=== PATIENT | male | born 1970 | race Caucasian/White ===

== ENCOUNTER → 2016-11-03 | Outpatient (CLI) | payer MEDICAID ==
[~2016-11-03] MED LIST: ALBUTEROL0.83 MG/ML IH; LEVAQUIN 5500 MG/TA1 PO; NORCO 325 MG-51 TAB PO; PREDNISONE20 MG PO; PROAIR HFA0.09 MG/AC IH; RT ADVAIR 228 DISKUS; RT ADVAIR 528 DISKUS IH
== END ==
LOC: COL.VAS 09:57
DX: G47.34 Idiopathic sleep related nonobstructive alveolar hypoventilation (principal); J44.9 Chronic obstructive pulmonary disease, unspecified

== ENCOUNTER 2017-01-18 01:25 | Emergency (ER) | payer MEDICAID ==
[~2017-01-18] VITALS: Ht 177.8 cm; Wt 170.5 kg
[~2017-01-18 01:25] MED LIST changes: -ALBUTEROL0.83 MG/ML IH; -LEVAQUIN 5500 MG/TA1 PO; -PROAIR HFA0.09 MG/AC IH; -RT ADVAIR 528 DISKUS IH
[2017-01-18 01:32] VITALS: TEMP 98.9
[2017-01-18 01:39] LABS: ALLEN TEST YES; ALLENS TEST RESULT PASS; ARTERIAL BLD GAS O2 SATURATION 99.5 % (92-100); ARTERIAL BLOOD GAS BASE EXCESS -0.7 (-2-2); ARTERIAL BLOOD GAS HCO3 27.2 meq/L (22-26); ARTERIAL BLOOD GAS PHT 7.29 C (7.35-7.45); ARTERIAL BLOOD GAS PO2 462.5 mmHg (80-100); ARTERIAL BLOOD GAS PO2T 462.5 (80-100); ARTERIAL BLOOD GAS pH 7.29 (7.35-7.45); ATS? YES; OXYHEMOGLOBIN 93.7 %
[2017-01-18 02:00] LABS: ADJUSTED CALCIUM 8.8 mg/dL (8.4-10.2); ALANINE AMINOTRANSFERASE 69 U/L (21-72); ALBUMIN 4.4 gm/dL (3.5-5.0); ALKALINE PHOSPHATASE 100 U/L (50-136); ANION GAP 13 mmol/L (7-16); BILIRUBIN,TOTAL 0.8 mg/dL (0.0-1.0); BLOOD UREA NITROGEN 6 mg/dL (9-20); CALCIUM 9.1 mg/dL (8.4-10.2); CARBON DIOXIDE 26 mmol/L (22-30); CHLORIDE 100 mmol/L (98-107); GLUCOSE 124 mg/dL (74-106); POTASSIUM 4.7 mmol/L (3.4-5.0); SODIUM 140 mmol/L (137-145)
[2017-01-18 02:01] LABS: BASO # 0.1 (0.0-0.2); BASO % 0.5 % (0.0-2.0); EOS # 0.2 (0.0-0.7); EOS % 2.2 % (0-4.0); GRAN # 7.3 (1.4-6.5); GRAN % 65.7 % (42.2-75.2); HEMATOCRIT 45.9 % (42.0-52.0); HEMOGLOBIN 15.6 g/dl (13.5-18.0); LYMPH # 2.6 (1.2-3.4); LYMPH % 23.5 % (20.0-51.0); MEAN CELL VOLUME 94 fl (80.0-100.0); MEAN CORPUSCULAR HEMOGLOBIN 32 pg (27.0-31.0); MEAN CORPUSCULAR HGB CONC 34 g/dl (33.0-37.0); MEAN PLATELET VOLUME 10.3 fl (7.4-10.4); MONO # 0.8 (0.1-0.6); MONO % 7.4 % (1.7-9.3); PLATELET COUNT 258 K/mm3 (130-400); RED BLOOD COUNT 4.91 M/mm3 (4.20-5.60); REDCELL DISTRIBUTION WIDTH-CV 12.6 % (11.5-14.5)
[2017-01-18 02:02] LABS: PROTHROMBIN TIME 11.5 SECONDS (9.7-12.8)
[2017-01-18 02:07] LABS: B-TYPE NATRIURETIC PEPTIDE 74 pg/mL (0-125)
[2017-01-18] MEDS ORDERED: RT ADVAIR 528 DISKUS IH (02:46)
[2017-01-18] MEDS ORDERED: PROAIR HFA0.09 MG/AC IH (02:49)
[2017-01-18 03:01] LABS: TROPONIN-I < 0.012 ng/mL (0.000-0.034)
[2017-01-18] MEDS ORDERED: PREDNISONE20 MG PO (04:41)
[2017-01-18] MEDS ORDERED: ALBUTEROL0.83 MG/ML IH (04:43)
[2017-01-18 04:56] VITALS: BP 154/100; PULSE 100
== END 2017-01-18 05:19 | disposition home or self-care (01) ==
LOC: COL.ER 01:25
PROVIDERS: Emergency Medicine
DX: J96.00 Acute respiratory failure, unspecified whether with hypoxia or hypercapnia (principal); J44.1 Chronic obstructive pulmonary disease with (acute) exacerbation; J45.901 Unspecified asthma with (acute) exacerbation; Z99.81 Dependence on supplemental oxygen
CPT/HCPCS: J7512

== ENCOUNTER 2017-01-19 23:38 | Emergency (ER) | payer MEDICAID ==
[~2017-01-19] VITALS: Ht 195.6 cm; Wt 170.5 kg
[~2017-01-19 23:38] MED LIST changes: +ALBUTEROL0.83 MG/ML IH; +PROAIR HFA0.09 MG/AC IH; +RT ADVAIR 528 DISKUS IH
[2017-01-19 23:42] VITALS: BP 146/73; TEMP 97.7
[2017-01-20 00:31] LABS: ALLEN TEST YES; ALLENS TEST RESULT PASS; ARTERIAL BLD GAS O2 SATURATION 93.8 % (92-100); ARTERIAL BLD GAS TCO2 CT 29.2; ARTERIAL BLOOD GAS BASE EXCESS 2.4 (-2-2); ARTERIAL BLOOD GAS HCO3 27.8 meq/L (22-26); ARTERIAL BLOOD GAS PO2 66.3 mmHg (80-100); ARTERIAL BLOOD GAS PO2T 66.3 (80-100); ATS? YES; OXYHEMOGLOBIN 87.3 %
[2017-01-20 00:47] LABS: BASO % 0.2 % (0.0-2.0); EOS # 0.1 (0.0-0.7); EOS % 0.7 % (0-4.0); GRAN # 5.7 (1.4-6.5); GRAN % 61.9 % (42.2-75.2); HEMATOCRIT 44.2 % (42.0-52.0); HEMOGLOBIN 14.6 g/dl (13.5-18.0); LYMPH # 2.5 (1.2-3.4); LYMPH % 26.8 % (20.0-51.0); MEAN CELL VOLUME 93 fl (80.0-100.0); MEAN CORPUSCULAR HEMOGLOBIN 31 pg (27.0-31.0); MEAN CORPUSCULAR HGB CONC 33 g/dl (33.0-37.0); MEAN PLATELET VOLUME 10.6 fl (7.4-10.4); MONO # 0.9 (0.1-0.6); MONO % 9.4 % (1.7-9.3); PLATELET COUNT 263 K/mm3 (130-400); RED BLOOD COUNT 4.74 M/mm3 (4.20-5.60); REDCELL DISTRIBUTION WIDTH-CV 12.7 % (11.5-14.5); WHITE BLOOD COUNT 9.2 K/mm3 (4.8-10.8)
[2017-01-20 01:21] LABS: ADJUSTED CALCIUM 8.8 mg/dL (8.4-10.2); ALANINE AMINOTRANSFERASE 61 U/L (21-72); ALBUMIN 4.1 gm/dL (3.5-5.0); ALKALINE PHOSPHATASE 82 U/L (50-136); ANION GAP 12 mmol/L (7-16); BILIRUBIN,TOTAL 0.8 mg/dL (0.0-1.0); BLOOD UREA NITROGEN 16 mg/dL (9-20); C-REACTIVE PROTEIN 0.9 mg/dL (0.0-0.9); CALCIUM 8.9 mg/dL (8.4-10.2); CARBON DIOXIDE 26 mmol/L (22-30); CHLORIDE 103 mmol/L (98-107); CREATININE, serum 0.68 mg/dL (0.66-1.25); GLUCOSE 115 mg/dL (74-106); POTASSIUM 3.9 mmol/L (3.4-5.0); SODIUM 141 mmol/L (137-145); TOTAL PROTEIN 7.6 gm/dL (6.4-8.2)
[2017-01-20 01:30] LABS: B-TYPE NATRIURETIC PEPTIDE 218 pg/mL (0-125)
[2017-01-20 01:34] LABS: TROPONIN-I < 0.012 ng/mL (0.000-0.034)
[2017-01-20] MEDS ORDERED: LEVAQUIN 5500 MG/TA1 PO (01:51)
[2017-01-20 02:10] VITALS: PULSE 109
== END 2017-01-20 02:13 | disposition home or self-care (01) ==
LOC: COL.ER 23:38
PROVIDERS: Emergency Medicine
DX: J44.1 Chronic obstructive pulmonary disease with (acute) exacerbation (principal); J45.909 Unspecified asthma, uncomplicated; F17.210 Nicotine dependence, cigarettes, uncomplicated
CPT/HCPCS: J2930

== ENCOUNTER → 2021-03-05 | Outpatient (CLI) | payer MEDICAID ==
[~2021-03-05] MED LIST changes: +LEVAQUIN 5500 MG/TA1 PO
== END ==
LOC: ZCOL.LAB 16:05
DX: L03.115 Cellulitis of right lower limb (principal)

== ENCOUNTER → 2021-05-19 | Outpatient (CLI) | payer MEDICAID ==
[2021-05-19 16:09] LABS: ALBUMIN 3.4 gm/dL (3.5-5.0); BILIRUBIN UNCONJUGATED 0.2 mg/dL (0.0-1.1); BILIRUBIN,TOTAL 0.2 mg/dL (0.0-1.0); CALCIUM 8.9 mg/dL (8.4-10.2); CREATININE, serum 0.73 (0.66-1.25); POTASSIUM 4.4 mmol/L (3.4-5.0); TOTAL PROTEIN 6.7 gm/dL (6.4-8.2)
== END ==
LOC: ZCOL.LAB 15:14
PROVIDERS: Emergency Medicine
DX: I10 Essential (primary) hypertension (principal); E66.2 Morbid (severe) obesity with alveolar hypoventilation

== ENCOUNTER → 2021-06-26 | Outpatient (CLI) | payer MEDICAID | LOC: ZCOL.LAB 16:28 | DX: L03.116 Cellulitis of left lower limb (principal) ==

== ENCOUNTER 2022-03-27 17:48 | Inpatient (IN) | payer MEDICAID ==
[~2022-03-27] VITALS: Ht 195.6 cm; Wt 177.4 kg
[2022-03-27 19:29] LABS: BASO % 0.5 % (0.0-2.0); EOS # 0.1 K/mm3 (0.0-0.7); EOS % 0.8 % (0.0-4.0); GRAN # 5.7 K/mm3 (1.4-6.5); GRAN % 67.7 % (42.2-75.2); HEMOGLOBIN 16.4 g/dl (13.5-18.0); LYMPH % 23.4 % (20.0-51.0); MEAN CELL VOLUME 100 fl (80.0-100.0); MEAN CORPUSCULAR HEMOGLOBIN 32 pg (27-31); MEAN CORPUSCULAR HGB CONC 31 g/dl (33.0-37.0); MEAN PLATELET VOLUME 11.2 fl (7.4-10.4); MONO # 0.6 K/mm3 (0.1-0.6); MONO % 7.2 % (1.7-9.3); PLATELET COUNT 147 K/mm3 (130-400); RED BLOOD COUNT 5.21 M/mm3 (4.20-5.60); REDCELL DISTRIBUTION WIDTH-CV 13.4 % (11.5-14.5)
[2022-03-27 19:33] LABS: HEMATOCRIT 52.2 % (42.0-52.0)
[2022-03-27 19:50] LABS: ALBUMIN 3.2 gm/dL (3.5-5.0); CALCIUM 8.6 mg/dL (8.4-10.2); CREATININE, serum 1.01 mg/dL (0.72-1.25); POTASSIUM 4.5 mmol/L (3.5-4.5); TOTAL PROTEIN 6.5 gm/dL (6.2-8.1)
[2022-03-27 19:58] LABS: TROPONIN-I 0.029 ng/mL (0.00-0.033)
[2022-03-27 20:13] LABS: COLLECTION METHOD CLEAN CATCH
[2022-03-27 20:19] LABS: PH 6 (5-8); SQUAMOUS EPITHELIAL 0-2 /hpf (0-10); URINE APPEARANCE Clear (CLEAR/HAZY); URINE BACTERIA None Seen /hpf (NONE SEEN); URINE BILIRUBIN Negative (NEGATIVE); URINE BLOOD Negative (NEGATIVE); URINE COLOR Yellow (YELLOW); URINE GLUCOSE Negative (NEGATIVE); URINE KETONE Negative (NEGATIVE); URINE LEUKOCYTE ESTERASE Negative (NEGATIVE); URINE NITRATE Negative (NEGATIVE); URINE PROTEIN(semi-quant) 1+ (NEGATIVE); URINE RBC 0-2 /hpf (0-2); URINE WBC 0-2 /hpf (0-2)
[2022-03-27] MEDS ORDERED: ALBUTEROL0.83 MG/ML IH (21:38)
[2022-03-27] MEDS ORDERED: LASIX 20MG TABL20 MG PO (21:38)
[2022-03-27] MEDS ORDERED: PRINIVIL40 MG PO (21:39)
[2022-03-27] MEDS ORDERED: TOPROL XL 25MG25 MG PO (21:39)
[2022-03-27] MEDS ORDERED: PROAIR HFA0.09 MG/AC IH (21:39)
--- NOTE | 2022-03-27 22:17 | NUR ---
RECEIVED REPORT FROM NOHEMI Mittal RN. WAITING ON PATIENT ARRIVAL FOR ADMIT TO ROOM 331.
--- NOTE | 2022-03-27 22:51 | NUR ---
PATIENT HERE FROM E.D. PER E.R. CART, WITH Haydee RN PRESENT/TRANSPORTING PATIENT TO UNIT. PATIENT ON 5 LPM PER NC. OBSERVED SOA WITH EXERTION.
[2022-03-27 22:56] VITALS: BP 116/57; PULSE 89; TEMP 97.9
[2022-03-27 23:36] LABS: C-REACTIVE PROTEIN 0.51 mg/dL (0.00-0.50); CHOLESTEROL RISK RATIO 4.8; MAGNESIUM 1.8 mg/dL (1.6-2.6)
[2022-03-27 23:57] LABS: THYROID STIMULATING HORMONE 1.508 uIU/mL (0.350-4.940); TROPONIN-I 0.019 ng/mL (0.00-0.033)
[2022-03-28 00:42] VITALS: BP 116/57; PULSE 89; TEMP 97.9
[2022-03-28 04:46] VITALS: BP 127/47; PULSE 93; TEMP 98.7
--- NOTE | 2022-03-28 07:02 | NUR ---
CHANGE OF SHIFT REPORT GIVEN TO DAY SHIFT RNPAUL.
[2022-03-28 07:55] VITALS: BP 142/60; PULSE 92; TEMP 97.7
--- NOTE | 2022-03-28 08:05 | NUR ---
Patient laying in bed sleeping, easily awakened with verbal command. A&Ox4. VSS 2L NC O2. Denies pain and discomfort. IV CDI. Rich intact. PAtient able to reposition self in bed with grab bar. Call light within reach
[2022-03-28 08:17] LABS: HEMOGLOBIN 16.8 g/dl (13.5-18.0); MEAN CELL VOLUME 103 fl (80.0-100.0); MEAN CORPUSCULAR HEMOGLOBIN 31 pg (27-31); MEAN CORPUSCULAR HGB CONC 30 g/dl (33.0-37.0); MEAN PLATELET VOLUME 12.6 fl (7.4-10.4); PLATELET COUNT 112 K/mm3 (130-400); RED BLOOD COUNT 5.39 M/mm3 (4.20-5.60); REDCELL DISTRIBUTION WIDTH-CV 13.4 % (11.5-14.5)
[2022-03-28 08:31] LABS: HEMATOCRIT 55.4 % (42.0-52.0)
[2022-03-28 10:36] LABS: LYMPHOCYTE 7 % (20.0-51.0); NEUTROPHILS 93 % (42.0-75.2)
[2022-03-28 10:37] LABS: HYPOCHROMIA 3+; PLATELET ESTIMATE NORMAL (NORMAL)
[2022-03-28 12:00] VITALS: BP 110/90; PULSE 91; TEMP 98.6
--- NOTE | 2022-03-28 14:09 | NUR ---
SW met with patient to complete intake. Patient states that he lives in [place], but later stated that he was homeless. Patient provided during intake process that he is currently waiting on his disability check to go to [place] where his spouse is Seth Etienne [phone]. Patient provided he is also waiting to be medically cleared be for going to [place]. SW asked where patient has been previously staying and patient stated that he has been staying at hotels funded by [facility]. Patient states that he is unable to stay at the assisted due to is bladder diagnosis. He attempted to stay there and he was denied. The only means of staying anywhere is through the funding of the restorationism he states. Patient again provides he will be getting a check before the end of the month and if DR states he has been medically cleared he will be leaving in the mean time he needs a place to stay until then. Patient provides that he uses a walker, independent with ADL's, and does not have a PCP, and pharmacy has been [facility]. Patient stated that he needed time to rest and would like resources at a later time. SW will continue to follow. DC plan: unknown (homeless)
[2022-03-28 15:32] VITALS: BP 97/42; PULSE 88; TEMP 98.9
--- NOTE | 2022-03-28 17:39 | NUR ---
Patient sitting up in bed, A&Ox4. VSS 4L NC O2, dsypnea at rest. IV CDI. Rihc intact, clear yellow. Denies pain and discomfort. Call light within reach
--- NOTE | 2022-03-28 20:46 | NUR ---
Pt. sitting up in bed. Pt. is A&OX3, assessment complete. INT to lt. hand patent. Pt. requests a nicotine patch, JULISSA Adair notified, new orders received. Pt. denies pain. Pt. has order for bipap. Pt. has a large canales. Pt. voices ok to shave. Face shaved with electic razor. Pt. tolerated well. Pt. denies further needs, call light within reach.
[2022-03-28 20:50] VITALS: BP 131/70; PULSE 97; TEMP 98.2
[2022-03-29 00:07] VITALS: BP 126/59; PULSE 100; TEMP 98.2
[2022-03-29 03:19] VITALS: BP 113/62; PULSE 92; TEMP 97.7
[2022-03-29 06:28] LABS: BASO % 0.1 % (0.0-2.0); GRAN # 9.4 K/mm3 (1.4-6.5); GRAN % 86.1 % (42.2-75.2); HEMATOCRIT 51.1 % (42.0-52.0); HEMOGLOBIN 16.1 g/dl (13.5-18.0); LYMPH # 0.9 K/mm3 (1.2-3.4); LYMPH % 7.8 % (20.0-51.0); MEAN CELL VOLUME 100 fl (80.0-100.0); MEAN CORPUSCULAR HEMOGLOBIN 31 pg (27-31); MEAN CORPUSCULAR HGB CONC 32 g/dl (33.0-37.0); MONO # 0.6 K/mm3 (0.1-0.6); MONO % 5.6 % (1.7-9.3); PLATELET COUNT 173 K/mm3 (130-400); RED BLOOD COUNT 5.13 M/mm3 (4.20-5.60); REDCELL DISTRIBUTION WIDTH-CV 13.2 % (11.5-14.5)
[2022-03-29 06:47] LABS: CALCIUM 8.4 mg/dL (8.4-10.2); CREATININE, serum 0.94 mg/dL (0.72-1.25); POTASSIUM 4.6 mmol/L (3.5-4.5)
[2022-03-29 08:00] VITALS: BP 118/70; PULSE 93; TEMP 98.3
--- NOTE | 2022-03-29 09:52 | NUR ---
Scheduled medcations given. Shift assessment preformed. Patient currently requiring 4L of O2 via nasal cannula. Dypsnea upon exertion noted. VSS. Patient A&O. Rich catheter in use, no kinks in tubing, securment device in use. Adequate output noted. Patient denies any pain, discomfort, SOA, or further needs at this time. Call light in reach. Fall precautions in place.
--- NOTE | 2022-03-29 10:51 | NUR ---
SW collaborated with patients RN and brand marketing coordinator. Patients RN states that the patient was was noncompliant with his bipap last night. Phone call made to [facility]. Patient is not allowed to return to their facility as he has " to many medical needs".
[2022-03-29 12:00] VITALS: BP 146/89; PULSE 87; TEMP 97.6
[2022-03-29 15:12] VITALS: BP 119/74; PULSE 91; TEMP 98.2
--- NOTE | 2022-03-29 19:28 | NUR ---
Patient has had an uneventful day. VSS. Patient A&O. Denies any pain, discomfort, SOA, or further needs at this time. CAll light in reach. Fall precautions in place.
[2022-03-29 20:49] VITALS: BP 123/58; PULSE 85; TEMP 98
--- NOTE | 2022-03-29 22:39 | NUR ---
ASSESSMENT COMPLETE. PT. SITTING IN BED WATCHING TV. A&O. NO COMPLAINTS OF PAIN. ANTIBITIOC INFUSING TO RIGHT FOREARM. CALL LIGHT IN REACH. NO FURTHER NEEDS.
[2022-03-30 00:39] VITALS: BP 125/69; PULSE 81; TEMP 97.7
[2022-03-30 03:39] VITALS: BP 116/54; PULSE 84; TEMP 97.3
[2022-03-30 06:49] LABS: BASO % 0.1 % (0.0-2.0); EOS % 0.2 % (0.0-4.0); GRAN # 6.4 K/mm3 (1.4-6.5); GRAN % 63.3 % (42.2-75.2); HEMATOCRIT 52.4 % (42.0-52.0); HEMOGLOBIN 16.3 g/dl (13.5-18.0); LYMPH # 2.9 K/mm3 (1.2-3.4); MEAN CELL VOLUME 100 fl (80.0-100.0); MEAN CORPUSCULAR HEMOGLOBIN 31 pg (27-31); MEAN CORPUSCULAR HGB CONC 31 g/dl (33.0-37.0); MEAN PLATELET VOLUME 11.3 fl (7.4-10.4); MONO # 0.7 K/mm3 (0.1-0.6); PLATELET COUNT 153 K/mm3 (130-400); RED BLOOD COUNT 5.23 M/mm3 (4.20-5.60); REDCELL DISTRIBUTION WIDTH-CV 13.3 % (11.5-14.5)
[2022-03-30 07:06] LABS: CALCIUM 8.2 mg/dL (8.4-10.2); CREATININE, serum 0.88 mg/dL (0.72-1.25); POTASSIUM 4.2 mmol/L (3.5-4.5)
[2022-03-30 08:00] VITALS: BP 121/71; PULSE 85; TEMP 97.7
--- NOTE | 2022-03-30 11:29 | NUR ---
dry mill worker met with patient to check in on neds. Informed the patient that i verified with [facility] that he cannot return due to his high medical needs. Informed him that at this time my plan is to send him to [facility] to help with housing. Patient verbalized he does not want to be placed in a fpc/facility of any kind because he is planning on flying to [place] once his SS check comes in at the first of April. States his is there and they have been talking about him moving back in with her " for awhile". Asked patient if he has been established with oxygen which he stated that he is not currently " but i'm supposed to have it". Educated him that we will establish him with O2 prior to him discharging.
[2022-03-30 12:00] VITALS: BP 145/94; PULSE 80; TEMP 98.2
[2022-03-30 15:48] VITALS: BP 116/69; PULSE 77; TEMP 98.3
[2022-03-30 20:00] VITALS: BP 129/74; PULSE 82; TEMP 97.5
[2022-03-31 00:13] VITALS: BP 113/71; PULSE 79; TEMP 98.5
[2022-03-31 04:40] VITALS: BP 108/64; PULSE 79; TEMP 97.4
[2022-03-31 07:31] VITALS: BP 134/74; PULSE 77; TEMP 98.2
--- NOTE | 2022-03-31 08:00 | NUR ---
PATIENT IS A&O. VSS. 02 @ 2L PER NC WITH SATS IN MID 90'S. PATIENT IS SUPPOSE TO BE WEARING BI-PAP AT HS BUT REFUSES TO WEAR IT. PATIENT IS HOMELESS AND REPORTS A LOCAL ORIENTAL ORTHODOX HAS BEEN PUTTING HIM UP IN A HOTEL. HE REPORTS GETTING KICKED OUT OF SOME HOTELS FOR VOIDING IN THE BED. PATIENT IS MORBIDLY OBESE, WEAK AND REQUIRES 2 ASSIST WITH ACTIVITY. PT/OT CONSULTED. TALLEY TO DD WITH MOD AMOUNTS OF YELLOW URINE NOTED. RIGHT FORARM IV TO INT. TOLERATING LOW SODIUM DIET. 1,500CC FR. AM MEDS GIVEN. HEAD TO TOE ASSESSMENT COMPLETE. IPR SCREEN. NO OTHER NEEDS. PATIENT REQUESTING LIGHTS BE TURNED DOWN. CALL LIGHT IN REACH.
[2022-03-31 11:39] VITALS: BP 130/77; PULSE 76; TEMP 98.4
[2022-03-31 15:52] VITALS: BP 105/63; PULSE 81; TEMP 97.8
--- NOTE | 2022-03-31 16:29 | NUR ---
Us Administrative Law Judge attended clinical rounds with the team and patient is medically ready for discharge once discharge plan is secured. PT/OT recommending SNF for patient, however he has Medicaid which will not cover SNF. SW discussed IPR screen and [facility]. Patient is agreeable and states he will also need follow up with Urology as he has been dealing with incontinence issues. SW gave referral to [facility] and they have no beds available. SW reviewed today PT/OT notes and patient declined to work with therapy. VADIM collaborated with Hospitalist and discharge will be tomorrow and plan will be to set patient up with [facility]. SW met with patient who advised he just wants to be able to smoke a cigarette and needs help getting a hotel until he gets paid next week. Patient is trying to get to his in [place]. Patient reports his daughter, Olga Lidia lives in [place] but her trailer is falling apart and he cannot go there. SW to follow up with [facility] and monitor oxygen needs as patient still requiring oxygen.
[2022-03-31 19:32] VITALS: BP 108/88; PULSE 78; TEMP 98.3
[2022-04-01 00:27] VITALS: BP 119/58; PULSE 78; TEMP 98.2
[2022-04-01 04:08] VITALS: BP 127/75; PULSE 80; TEMP 98
[2022-04-01 07:45] VITALS: BP 105/50; PULSE 65; TEMP 97.7
--- NOTE | 2022-04-01 08:00 | NUR ---
PATIENT IS A&O. VSS. NO COMPLAINTS THIS AM. PATIENT IS HOMELESS AND THE PLAN IS TO TRANSFER TO THE "[facility]" TODAY. RD PROJECT MANAGER SETTING UP DISCHARGE NEEDS AND HOME OXYGEN. PATIENT HAS BEEN INCONTINENT OF URINE SINCE TALLEY REMOVAL YESTERDAY. PATIENT REFUSING TO USE URINAL AND CALLS OUT AFTER HE VOIDS IN BED. RIGHT FORARM IV TO INT. TOLERATING LOW NA DIET. PATIENT OFTEN ASKS FOR FOODS THAT ARE HIGH IN SODIUM, EDUCATION PROVIDED. AM MEDS GIVEN. HEAD TO TOE ASSESSMENT COMPLETE. CALL LIGHT IN REACH.
--- NOTE | 2022-04-01 10:12 | NUR ---
While sitting on RA patient was 90% 88HR. Put on 1L NC 91% 87HR Sitting. Patient walked three steps on 1LPM NC 89% 94HR. Patient needs 1 LPM at rest and 2 LPM with excertion.
--- NOTE | 2022-04-01 10:24 | NUR ---
VADIM contacted [facility] who is agreeable to receiving the patient today and will help him arrange hotel funding. Patient is currently on 2L of oxygen. EXOX requested and contact made to [facility]. Informed Ramesh that the patient is homeless and that the discharge plan is to send him to [facility]. Informed Ramesh that the patient will need to have his oxygen delivered. Patient's clinical information and order faxed to [facility].
--- NOTE | 2022-04-01 10:51 | NUR ---
SW notified ohysician that the patient's oxygen order has been faxed and that the patient can discharge today. MD to place orders.
[2022-04-01] MEDS ORDERED: PREDNISONE20 MG PO (10:56)
--- NOTE | 2022-04-01 12:19 | NUR ---
PATIENT'S HOME OXYGEN HAS NOW ARRIVED, APPLIED PER NC PER ORDERS. PATIENT GIVEN GO-VAN-GO VOUCHER GIVEN AND TRANSPORTATION CALLED, WILL BE HERE IN 10 MINUTES FOR DISCHARGE AND TRANSFER TO THE "[facility]". IV DC'D AND SITE COVERED WITH [employer]. PATIENT IS DRESSED AND HAS PERSONAL BELONINGS INCLUDING HIS 1 CIGARETTE AND SWITCH TECHNICIAN. DISCHARGE INFO & PACKET GIVEN TO PATIENT. ANSWERED QUESTIONS/CONCERNS. PATIENT ALSO SENT EXTRA BRIEFS FOR INCONTINENCE. PATIENT ESCORTED OUT VIA WC.
[2022-04-01 12:53] VITALS: BP 116/57; PULSE 84; TEMP 98.3
--- NOTE | 2022-04-01 15:06 | NUR ---
Phone call received from Arnaldo Graves stating that after talking with the patient, the patient is now agreeable to go to a [facility] and they are wanting to bring the patient back to be admitted to find placement. Informed him that the patient's insurance will not cover a SNF stay and the patient was not willing to working with our therapy teams. Patient does not have any chronic medical needs that would make him a LTC appropriate. SW informed Arnaldo that if they were to bring the patient back, that we would triage him, but we would only admit him if it was medically necessary. Informed him that we do not admit people for social problems. Encouraged him to reach out to the [facility] and APS to assist with resources. Arnaldo asked me what his other options are for this patient as " it would be expensive to put him in a hotel room". Encouraged him to reach out to the residential in [place] and the [place] emergency residential will not take him back. Also encouraged him to reach out to the [facility] to see if they have any resources that would be able to help this patient.
--- NOTE | 2022-04-02 16:26 | NUR ---
*(LATE ENTRY)* Arnaldo with [facility] and his case management rn arrive to this ED at approx. 1600 on the day of the patient's discharge stating that they would like the patient to be a direct admit back to this facility to factory helper the patient in finding a detention placement as this patient is now "willing to go". Liu, Garment Worker and SW Director Tiffanie Reyez involved with the conversation. Our team discussed that we cannot admit the patient unless he was triaged and has a medical need and that we will not admit him for placement purposes. [facility] firmly stated that they were not able to help this patient find/establish resources. After discussion our hospital staff collaborated on the options we had for this patient as he was left in our ED waiting room. Phone call made to [facility] for further explanation as to why the patient was not allowed to return there. Their staff states the reasoning is because " the patient has to utilize the wall to help ambulate and he is incontinent of bowel and bladder". Asked if we were to send DME supplies with the patient if would be allowed back which the worker stated that only the director can over turn the decision and they were not in the building. Phone call made to the [facility] who was not willing to accept this patient as he is not a [place] [employer] [facility]. resident and they do not accept transient people. Permission granted by [facility] that the hospital would pay to place this patient in the [facility] for 2 days at the rate of $50.00 a night. House supervior instructed to call via [facility] and deliver the patient's concentrator the the motel. Second taxi voucher provided for the patient. APS report file. C#[id number]
== END 2022-04-01 12:20 | disposition home or self-care (01) | DRG 291 ==
LOC: COL.ER 17:48 → SURG 21:28
PROVIDERS: Nurse Practitioner Family; Physician Assistant; ADMIT Family Medicine
DX: I11.0 Hypertensive heart disease with heart failure (principal); J96.21 Acute and chronic respiratory failure with hypoxia; I50.33 Acute on chronic diastolic (congestive) heart failure; J44.1 Chronic obstructive pulmonary disease with (acute) exacerbation; E66.2 Morbid (severe) obesity with alveolar hypoventilation; Z68.42 Body mass index [BMI] 45.0-49.9, adult; F17.210 Nicotine dependence, cigarettes, uncomplicated; Z20.822 Contact with and (suspected) exposure to COVID-19; I27.20 Pulmonary hypertension, unspecified; Z90.89 Acquired absence of other organs; Z91.018 Allergy to other foods; Z59.00 Homelessness unspecified; Z91.19 Patient's noncompliance with other medical treatment and regimen
CPT/HCPCS: 99223-AI; 99232-AI; 99233-AI; 99239; A9284; J0456; J1650; J1940; J2920; J2930; J7050; J7512

== ENCOUNTER 2022-04-02 21:47 | Emergency (ER) | payer MEDICAID ==
[~2022-04-02] VITALS: Ht 195.6 cm; Wt 204.5 kg
[~2022-04-02 21:47] MED LIST changes: +LASIX 20MG TABL20 MG PO; +PRINIVIL40 MG PO; +TOPROL XL 25MG25 MG PO
[2022-04-02 21:51] VITALS: TEMP 98.8
[2022-04-02 22:20] LABS: BASO # 0.1 K/mm3 (0.0-0.2); BASO % 0.3 % (0.0-2.0); EOS # 0.2 K/mm3 (0.0-0.7); EOS % 0.9 % (0.0-4.0); HEMOGLOBIN 17.7 g/dl (13.5-18.0); LYMPH # 2.4 K/mm3 (1.2-3.4); LYMPH % 15.1 % (20.0-51.0); MEAN CELL VOLUME 98 fl (80.0-100.0); MEAN CORPUSCULAR HEMOGLOBIN 31 pg (27-31); MEAN CORPUSCULAR HGB CONC 32 g/dl (33.0-37.0); MEAN PLATELET VOLUME 10.7 fl (7.4-10.4); MONO # 1.2 K/mm3 (0.1-0.6); MONO % 7.3 % (1.7-9.3); PLATELET COUNT 177 K/mm3 (130-400); RED BLOOD COUNT 5.66 M/mm3 (4.20-5.60); REDCELL DISTRIBUTION WIDTH-CV 13.2 % (11.5-14.5)
[2022-04-02 22:21] LABS: HEMATOCRIT 55.7 % (42.0-52.0)
[2022-04-02 22:33] LABS: ALBUMIN 3.2 gm/dL (3.5-5.0); BILIRUBIN,TOTAL 0.9 mg/dL (0.2-1.2); CALCIUM 8.9 mg/dL (8.4-10.2); CREATININE, serum 1.15 mg/dL (0.72-1.25); POTASSIUM 4.8 mmol/L (3.5-4.5); TOTAL PROTEIN 6.9 gm/dL (6.2-8.1)
[2022-04-02 22:40] LABS: TROPONIN-I 0.012 ng/mL (0.00-0.033)
[2022-04-03 02:34] VITALS: BP 126/70; PULSE 75
--- NOTE | 2022-04-03 11:31 | NUR ---
Naomi GriffithsSupervisor Properties notifies this Hanging Flags Decorator that patient is sitting outside the hospital entrance; he was discharged yesterday from an inpatient admission to a hotel and was asked to leave after having been incontinence of bowel in his hotel room, destroying hotel property. Hotel staff refusing to relinquish patient oxygen despite [facility] follow up. Patient was evaluated in Emergency Department early this morning and discharged at approximately 03:00. Patient states he has no where to go. This Hanging Flags Decorator attempted to contact [facility] to see if additional/replacement oxygen can be provided, no answer and business hours only M-F 8:00-5:00. This Hanging Flags Decorator reviewed patient chart noting referrals/resources to coordinate patient hotel stay. Hanging Flags Decorator met with patient and security staff outside hospital entrance; patient is sitting on bench and appears to be sweating. He repeatedly states he is too hot, and he needs to get inside out of the sun. He states he has been trying to call "friends" with no success today, and he is fearful of "passing out" in the heat. This Hanging Flags Decorator reviewed community resources handout with patient, and he informs he cannot go to the [facility] in [facility], notes he has been staying when possible with friends and/or at hotels as possible. He states he has no cell phone power to call friends, but he is willing for this Hanging Flags Decorator to charge his phone briefly to use for phone contact and planning to leave hospital property as concerned that [facility] will be contacted for trespassing if he should remain. Patient is given another cup of ice water, and his phone is plugged in as he waits outside; this Hanging Flags Decorator notes his phone has 43% battery life at this time. Patient is returned his phone and encouraged to attempt contacts to friends with this Hanging Flags Decorator's emotional support. He sends his daughter Melodie Schafer a [employer] Messenger text requesting contact SUNITA. He does not have her phone number. He notes she has informed her trailer is "not up to par. Not for me." He contacts friend Julio by phone; Julio is unwilling to brain picker patient from the hospital and allow his temporary stay. Patient calls friend Marii, who states she will make attempts to try to find someone to brain picker patient from the hospital but she cannot. Patient calls friend Chico Kirkpatrick and leaves a . "They got me fixed and now I gotta get out of here." He states his spouse Seth lives in [place] and cannot assist him. He is willing to contact the [facility], noting they informed he may not utilize their services: "That's still a no." He is referred to [facility], and he attempts to contact. Security remains on standby as this Hanging Flags Decorator contacts supervisor customer records division Tiffanie Reyez [facility] to discuss. Patient has had two Adult Protective Services report and the hospital has maximized available resources for patient. This Hanging Flags Decorator informed no hospital resources available to patient at this time. Naomi GriffithsSupervisor Properties and Gino Farnsworth updated; [facility] will be contacted to escort patient off hospital property if he cannot coordinate his own transportation and long-term. This Hanging Flags Decorator to complete Adult Protective Services follow up report.
== END 2022-04-03 04:00 | disposition left against medical advice (07) ==
LOC: COL.ER 21:47
PROVIDERS: Emergency Medicine
DX: R53.1 Weakness (principal)
CPT/HCPCS: J7120

== ENCOUNTER 2022-04-25 18:15 | Emergency (ER) | payer MEDICAID ==
[~2022-04-25] VITALS: Ht 195.6 cm; Wt 179.5 kg
[2022-04-25 18:18] VITALS: TEMP 97.5
[2022-04-25 19:04] LABS: BASO % 0.3 % (0.0-2.0); EOS # 0.1 K/mm3 (0.0-0.7); EOS % 1.1 % (0.0-4.0); GRAN # 6.2 K/mm3 (1.4-6.5); GRAN % 70.2 % (42.2-75.2); HEMOGLOBIN 15.9 g/dl (13.5-18.0); LYMPH # 1.9 K/mm3 (1.2-3.4); LYMPH % 20.9 % (20.0-51.0); MEAN CELL VOLUME 96 fl (80.0-100.0); MEAN CORPUSCULAR HEMOGLOBIN 31 pg (27-31); MEAN CORPUSCULAR HGB CONC 32 g/dl (33.0-37.0); MEAN PLATELET VOLUME 10.9 fl (7.4-10.4); MONO # 0.6 K/mm3 (0.1-0.6); MONO % 7.2 % (1.7-9.3); PLATELET COUNT 185 K/mm3 (130-400); RED BLOOD COUNT 5.12 M/mm3 (4.20-5.60)
[2022-04-25 19:15] LABS: ALANINE AMINOTRANSFERASE 16 U/L (0-55); ALBUMIN 3.5 gm/dL (3.5-5.0); ALKALINE PHOSPHATASE 90 U/L (40-150); ANION GAP 12 mmol/L (7-16); AST,SGOT 15 U/L (5-34); BILIRUBIN,TOTAL 0.6 mg/dL (0.2-1.2); BLOOD UREA NITROGEN 13 mg/dL (8-26); CALCIUM 9.3 mg/dL (8.4-10.2); CARBON DIOXIDE 27 mmol/L (22-29); CHLORIDE 100 mmol/L (98-107); CREATININE, serum 0.76 mg/dL (0.72-1.25); GLUCOSE 104 mg/dL (70-99); POTASSIUM 4.7 mmol/L (3.5-4.5); SODIUM 139 mmol/L (136-145); TOTAL PROTEIN 7.2 gm/dL (6.2-8.1)
[2022-04-25 19:25] LABS: TROPONIN-I < 0.010 ng/mL (0.00-0.033)
[2022-04-25] MEDS ORDERED: PREDNISONE50 MG PO (19:50)
[2022-04-25] MEDS ORDERED: DOXYCYCLINE 10100 MG PO (19:50)
[2022-04-25 20:13] VITALS: BP 141/85; PULSE 91
== END 2022-04-25 20:13 | disposition home or self-care (01) ==
LOC: COL.ER 18:15
PROVIDERS: Emergency Medicine
DX: J44.1 Chronic obstructive pulmonary disease with (acute) exacerbation (principal); F17.220 Nicotine dependence, chewing tobacco, uncomplicated; E66.9 Obesity, unspecified; Z68.42 Body mass index [BMI] 45.0-49.9, adult; Z99.81 Dependence on supplemental oxygen; Z79.51 Long term (current) use of inhaled steroids
CPT/HCPCS: J7512